=== PATIENT | female | born 1995 | race American Indian/Alaskan Native ===

== ENCOUNTER 2018-05-24 20:29 | Emergency (ER) | payer SELFPAY ==
[2018-05-24 20:44] VITALS: O2SAT 99
[2018-05-24] MEDS ORDERED: Sodium Chloride 0.9% 1,000 ML IV STA (21:32)
[2018-05-24 21:46] LABS: BASO % 0.4 % (0.0-2.0); EOS # 0.2 K/uL (0.0-0.7); EOS % 3.5 % (0.0-4.0); HEMOGLOBIN 11.1 g/dL (11.0-16.0); LYMPH # 1.8 K/uL (1.0-4.3); LYMPH % 33.1 % (20.0-40.0); MEAN CORPUSCULAR HEMOGLOBIN 30.7 pg (27.0-31.0); MEAN CORPUSCULAR HGB CONC 33.1 g/dL (33.0-37.0); MONO # 0.4 K/uL (0.0-0.8); MONO % 6.8 % (0.0-10.0); NEUT # 3.1 K/uL (1.8-7.0); NEUT % 56.2 % (50.0-75.0); RBC 3.6 Mil/uL (3.80-5.20); WHITE BLOOD COUNT 5.5 K/uL (4.8-10.8)
--- NOTE | 2018-05-24 21:48 | C.PDOC ---
History Of Present Illness 23 year old female presents to the ED complaining of abdominal pain for 1.5 hours, worsening since onset. Pain initially was localized to the epigastrium and has since radiated to the bilateral lower quadrants. She describes pain as sharp, constant, and crampy. Associated with nausea and vomiting since yesterday. Otherwise patient denies any fever, chills, diarrhea, dysuria, or vaginal bleeding. Patient reports she is 13 weeks by dates, and her first ultrasound appointment is tomorrow. Time Seen by Provider: 05/24/18 21:16 Chief Complaint (Nursing): Abdominal Pain History Per: Patient History/Exam Limitations: no limitations Onset/Duration Of Symptoms: Hrs (1.5) Current Symptoms Are (Timing): Still Present Location Of Pain/Discomfort: Epigastric, Suprapubic Quality Of Discomfort: Cramping Associated Symptoms: Nausea, Vomiting Past Medical History Reviewed: Historical Data, Nursing Documentation, Vital Signs Vital Signs: Last Vital Signs Temp 98.3 F 05/24/18 20:40 Pulse 79 05/24/18 20:40 Resp 20 05/24/18 20:40 BP 110/62 05/24/18 20:40 Pulse Ox 99 05/24/18 20:40 - Medical History PMH: Asthma Denies: Chronic Kidney Disease Surgical History: Family History: States: Unknown Family Hx - Social History Hx Tobacco Use: No Hx Alcohol Use: No Hx Substance Use: No - Immunization History Hx Tetanus Toxoid Vaccination: Yes Hx Influenza Vaccination: Yes Hx Pneumococcal Vaccination: No Review Of Systems Except As Marked, All Systems Reviewed And Found Negative. Constitutional: Negative for: Fever, Chills Cardiovascular: Negative for: Chest Pain Respiratory: Negative for: Shortness of Breath Gastrointestinal: Positive for: Nausea, Vomiting, Abdominal Pain. Negative for: Diarrhea, Hematochezia Genitourinary: Negative for: Dysuria, Frequency, Hematuria, Vaginal Bleeding Neurological: Negative for: Weakness, Numbness Physical Exam - Physical Exam Additional Physical Exam Comments: Constitutional: No acute distress. Head: Normocephalic. Atraumatic. Eyes: PERRL. ENT: Moist mucous membranes. Neck: Supple. Cardiovascular: Regular rate. Radial pulse 2+ bilaterally. Chest: No tenderness. Respiratory: Clear to auscultation bilaterally. GI: Soft. Suprapubic and RLQ tenderness with guarding. Back: No CVA tenderness. Musculoskeletal: No tenderness or swelling of extremities. Skin: No rash. Neurologic: Alert, no focal deficit. ED Course And Treatment - Laboratory Results Result Diagrams: 05/24/18 21:38 05/24/18 21:38 O2 Sat by Pulse Oximetry: 99 (RA) Pulse Ox Interpretation: Normal Medical Decision Making Medical Decision Making: Initial Plan: --CMP --Beta-HCG --Lipase --CBC --PTT/PT --Urinalysis --Urine culture --Blood type/screen --Abdominal US --Trasvag/pelvic US --IV fluids US abdomen Date of service: 05/24/2018 History Abdominal pain in . Assess RLQ for appendectomy. Comparison None. Technique Sonographic evaluation of the right lower quadrant of the abdomen. Findings Appendix is not visualized. Bowel peristalsis is noted. Patient is 13 weeks . Impression Appendix not visualized. Bowel peristalsis. Electronically signed on May 24, 2018 11:03:36 PM EST by: Stew Lyons M.D., MBA Certified By [facility] [facility] Fellowship Trained MRI and CT Specialist US pelvic Procedure OB 1st trimester Ultrasound History Abdominal pain in . Comparison None available. Findings Uterus Single Live intrauterine gestation. CRL measures 7.26 cm, equivalent to 13 weeks 3 days gestatioin Gestational sac is seen. Yolk sac is not visualized. age (Ultrasound estimated): 13 weeks 3 days. Heart rate: 156 bpm. Claire-gestational hemorrhage: None. Uterus measures 14.1 x 8.5 x 11.2 cm. Anteverted. No mass Cervix Long and closed. Measures 3.2 cm. No cervical abnormality seen. Right Ovary Not visualized. Left Ovary Measures 6.5 x 5.1 x 5.5 cm. Left ovarian cyst measuring 4.2 x 4.0 x 3.4 cm. Normal flow. Free Fluid None. Other Findings None. Impression Single live intrauterine gestation 13 weeks 3 days. Right ovary not visualized. Left ovarian cyst. Electronically signed on May 24, 2018 11:53:15 PM EST by: Stew Lyons M.D., GREGORIO Certified By [facility] [facility] Fellowship Trained MRI and CT Specialist Patient without abnormal vital signs and no leukocytosis. She states her pain is improved at time of discharge. Patient offered observation admission for MRI tomorrow for possible appendicitis. Patient declined and wished to go home but informed patient could return to ED if pain returns or worsens for admission/MRI. Disposition - Disposition Disposition: HOME/ ROUTINE Disposition Time: 00:00 Condition: STABLE Prescriptions: RX: Acetaminophen [Tylenol 325mg tab] 2 tab PO Q4H #30 tab Instructions: Acute Abdomen (Belly Pain), Adult (DC) Forms: [facility] ([place]) - Clinical Impression Clinical Impression: Abdominal pain - Scribe Statement The provider has reviewed the documentation as recorded by the Kvng Wheeler Provider Attestation: All medical record entries made by the Kvng were at my direction and personally dictated by me. I have reviewed the chart and agree that the record accurately reflects my personal performance of the history, physical exam, medical decision making, and the department course for this patient. I have also personally directed, reviewed, and agree with the discharge instructions and disposition.
[2018-05-24 21:53] LABS: INR 1.1; MEAN CELL VOLUME 92.8 fL (81.0-99.0); PROTHROMBIN TIME 11.6 SECONDS (9.7-12.2)
[2018-05-24 21:55] LABS: SQUAMOUS EPITHIAL 6 /hpf (0-5); URINE BACTERIA RARE (<OCC); URINE BILIRUBIN NEGATIVE (NEGATIVE); URINE BLOOD NEGATIVE (NEGATIVE); URINE CLARITY Clear (Clear); URINE COLOR Yellow (YELLOW); URINE GLUCOSE (UA) NORMAL (Normal); URINE LEUKOCYTE ESTERASE NEG Leu/uL (Negative); URINE PROTEIN NEGATIVE (NEGATIVE); URINE UROBILINOGEN NORMAL mg/dL (0.2-1.0)
[2018-05-24 21:55] LABS: ALB/GLOB RATIO 1.4 (1.0-2.1); ALBUMIN 4.1 g/dL (3.5-5.0); ALT/SGPT 21 U/L (9-52); AST/SGOT 18 U/L (14-36); BLOOD UREA NITROGEN 11 mg/dL (7-17); CALCIUM 8.7 mg/dl (8.6-10.4); GFR NON-AFRICAN AMERICAN > 60; LIPASE 59 U/L (23-300)
[2018-05-24] MEDS ORDERED: Sodium Chloride 0.9% 1,000 ML ONE (21:59)
[2018-05-25 00:04] VITALS: BP 102/63; PULSE 68; RESP 18; TEMP 98.9
--- NOTE | 2018-05-25 09:57 | US ---
Date of service: 05/24/2018 PROCEDURE: Limited ultrasound of the abdomen HISTORY: abd pain in preg, assess RLQ for appy COMPARISON: None TECHNIQUE: Targeted high-resolution ultrasound of the right lower quadrant was performed with real-time linear scanner. FINDINGS: The appendix is not visualized. Peristalsing bowel loops were identified as documented by the technologist. No evidence of free fluid in the right lower quadrant. No solid or cystic mass IMPRESSION: The appendix is not visualized. Nonvisualization of the appendix does not exclude acute appendicitis. An MRI without intravenous contrast may be performed if clinically indicated.
--- NOTE | 2018-05-25 10:34 | US ---
Date of service: 05/24/2018 PROCEDURE: OB Pelvic Ultrasound HISTORY: abd pain in LMP: 02/28/2018 COMPARISON: None available. FINDINGS: UTERUS: Gestational sac: Single live intrauterine gestation. CRL measures 7.26 cm corresponding to 13 weeks and 3 days of gestational age. Heart rate: 156 bpm. age (Ultrasound estimated): 13 weeks and 3 days Claire-gestational hemorrhage: None. Date of delivery (Ultrasound estimated) : 11/26/2018 Uterus measures 14.1 x 0.5 x 11.2 cm. Anteverted, normal in size and appearance. CERVIX: Measures 3.2 cm. Long and closed. No cervical abnormality seen. RIGHT OVARY: Not visualized. LEFT OVARY: Measures 6.5 x 5.1 x 5.5 cm. No solid mass. Normal flow. There is a 4.2 x 4.0 x 3.4 cm simple cyst. FREE FLUID: None. OTHER FINDINGS: None. IMPRESSION: Single live intrauterine gestational sac with mean gestational age of 13 weeks and 3 days. The estimated date of delivery by ultrasound is 11/26/2018. 4.2 x 4.0 x 3.4 cm cyst in the left ovary. A preliminary report was provided by [employer].
== END 2018-05-25 00:27 | disposition home or self-care (01) ==
LOC: C.ER 20:29
DX: O26.891 Other specified pregnancy related conditions, first trimester (principal); R10.31 Right lower quadrant pain; Z3A.13 13 weeks gestation of pregnancy
CPT/HCPCS: 76705; 76801; 80053; 81001; 83690; 84702; 85025; 85610; 85730; 86850; 86900; 87086; 99284; J7030